=== PATIENT | male | born 1995 | race Caucasian/White ===

== ENCOUNTER 2022-10-27 05:10 | Emergency (ER) | payer MEDICAID ==
[~2022-10-27] VITALS: Ht 177.8 cm; Wt 77.0 kg
[~2022-10-27 05:10] MED LIST: BUPR100T71; TRAZ100T3; ZIPR80CA37
[2022-10-27 05:27] VITALS: BP 143/100
[2022-10-27 19:45] LABS: Urine Bacteria FEW /hpf (None Seen); Urine Blood 1+ /uL (Negative); Urine Budding Yeast FEW /hpf (None Seen); Urine Specific Gravity 1.008 (1.001-1.035); Urine WBC 258 /hpf (0 - 3); Urine WBC Clumps PRESENT /hpf (None Seen)
== END 2022-10-27 08:29 | disposition left against medical advice (07) ==
LOC: ER 05:10 → EDBD 05:10 → ER 08:29
DX: F41.9 Anxiety disorder, unspecified (principal); F15.90 Other stimulant use, unspecified, uncomplicated; Z53.21 Procedure and treatment not carried out due to patient leaving prior to being seen by health care provider
CPT/HCPCS: 81001